=== PATIENT | female | born 1965 | race Two or more races ===

== ENCOUNTER 2017-12-21 22:51 | Emergency (ER) | payer OTHER ==
[~2017-12-21] VITALS: Ht 152.4 cm; Wt 56.7 kg
[2017-12-21] MEDS ORDERED: ATACAND16 MG (23:06)
[2017-12-22] MEDS ORDERED: PROMETH-CODEIN 65 ML PO (03:35)
[2017-12-22] MEDS ORDERED: KETO10TA2 PO (03:35)
[2017-12-22] MEDS ORDERED: OSEL75CA PO (03:35)
[2017-12-22] MEDS ORDERED: IPRAT-ALBUT 0.5-3 ML IH (03:35)
== END 2017-12-22 03:41 | disposition home or self-care (01) ==
LOC: ER 22:51
DX: J11.1 Influenza due to unidentified influenza virus with other respiratory manifestations (principal); J06.9 Acute upper respiratory infection, unspecified

== ENCOUNTER 2020-02-22 15:00 | Outpatient (CLI) | payer OTHER ==
[~2020-02-22 15:00] MED LIST: ATACAND16 MG; IPRAT-ALBUT 0.5-3 ML IH; KETO10TA2 PO; OSEL75CA PO; PROMETH-CODEIN 65 ML PO
== END 2020-02-22 18:50 | disposition home or self-care (01) ==
LOC: PPH VACUNA 15:00
DX: Z23 Encounter for immunization (principal)

== ENCOUNTER → 2020-10-18 | Outpatient (CLI) | payer OTHER | END | disposition home or self-care (01) | LOC: PPH VACUNA 08:00 | DX: Z23 Encounter for immunization (principal) ==

== ENCOUNTER 2022-02-02 08:28 | Outpatient (CLI) | payer OTHER | END 2022-02-02 08:45 | disposition home or self-care (01) | LOC: RAD 08:28 | PROVIDERS: ATTEND Orthopaedic Surgery Sports Medicine | DX: M75.52 Bursitis of left shoulder (principal) ==

== ENCOUNTER → 2024-04-22 | Outpatient (CLI) | payer OTHER | END | disposition home or self-care (01) | LOC: RAD 09:36 | DX: J20.9 Acute bronchitis, unspecified (principal); R59.0 Localized enlarged lymph nodes ==